=== PATIENT | female | born 1995 | race Caucasian/White ===

== ENCOUNTER → 2017-06-02 | Outpatient (CLI) | payer SELFPAY ==
--- NOTE | 2017-06-02 16:21 | RADIOLOGY REPORT (SQ) ---
EXAM DESCRIPTION: U/S [id number] TRNABD 1GES W/ODOP COMPLETED DATE/TIME: 06/02/2017 3:49 pm REASON FOR STUDY: ENCOUNTER FOR SUPERVISION OF OTHER NORMAL FIRST TRIMESTER Z34.[address] FOR SUPRVSN OF NORMAL , FIRST TRIM COMPARISON: None. TECHNIQUE: Transabdominal static and realtime grayscale images acquired of the pelvis. Additional se lected spectral and color Doppler images recorded. All images stored on PACs. bHCG: Not available. LIMITATIONS: None. FINDINGS: FETUS: Living intrauterine . EGA: By crown-rump length, 8 weeks 6 days KRISTEL: 01/06/2018 FHR: 173 beats per minute. SUBCHORIONIC BLEED: Yes SIZE OF BLEED: Moderate size subchorionic hemorrhage is present, 2.4 x 0.8 cm in size. This involves less than 50% of the circumference of the gestational sac. UTERUS: No masses. No anomalies. Uterus is 10 x 6 x 6.5 cm in size. CERVICAL LENGTH: 2.7 cm in length Closed. RIGHT ADNEXA: Normal ovary with normal vascular flow. 2.3 x 2.1 x 2 cm in size No adnexal free fluid. No adnexal masses. LEFT ADNEXA: Normal ovary with normal vascular flow. 3.8 x 2.2 x 2.2 cm in size No adnexal free fluid. No adnexal masses. FREE FLUID: None. OTHER: No other significant finding. IMPRESSION: LIVING INTRAUTERINE . EGA 8 weeks 6 days Moderate size subchorionic hemorrhage. Trimester of : First - 0 to 13 weeks. TECHNICAL DOCUMENTATION: JOB ID: [id number]- All Rights Reserved
== END ==
LOC: RAD 15:11
PROVIDERS: ATTEND Nurse Practitioner Women's Health
DX: Z34.81 Encounter for supervision of other normal pregnancy, first trimester (principal)
CPT/HCPCS: 76801

== ENCOUNTER → 2017-06-11 | Outpatient (CLI) | payer MEDICAID ==
--- NOTE | 2017-06-11 17:11 | RADIOLOGY REPORT (SQ) ---
EXAM DESCRIPTION: U/S [id number] TRNABD 1GES W/ODOP COMPLETED DATE/TIME: 06/11/2017 4:49 pm REASON FOR STUDY: ENCOUNTER FOR SUPERVISION OF OTHER NORMAL Z34.81 ENCOUNTER FOR SUPRVSN OF NORMAL , FIRST TRIM COMPARISON: OB ultrasound 06/02/2017 TECHNIQUE: Transabdominal static and realtime grayscale images acquired of the pelvis. Additional se lected spectral and color Doppler images recorded. All images stored on PACs. bHCG: None available LIMITATIONS: None. FINDINGS: FETUS: Living intrauterine . EGA: 9 weeks 4 days KRISTEL: 01/10/2018 FHR: 178 beats per minute. SUBCHORIONIC BLEED: Yes SIZE OF BLEED: Moderate sized. There has been evolution of the subchorionic hemorrhage is seen on . On the current exam, a hypoechoic 2.2 by 0.9 cm hemorrhage is seen along the fundus, smalle r than on the previous study. There is a second, smaller thin rim of hemorrhage, 2.8 by 0.4 cm in si ze. This is smaller than on the previous study. UTERUS: No masses. No anomalies. CERVICAL LENGTH: 3.9 cm Closed. RIGHT ADNEXA: Normal ovary with normal vascular flow. 3.6 x 2.7 x 2.6 cm in size No adnexal free fluid. No adnexal masses. LEFT ADNEXA: Normal ovary with normal vascular flow. 3.7 x 3.4 x 1.4 cm in size No adnexal free fluid. No adnexal masses. FREE FLUID: None. OTHER: No other significant finding. IMPRESSION: LIVING INTRAUTERINE . EGA 9 weeks 4 days Residua of subchorionic hemorrhages are smaller than on previous study 06/02/2017 Trimester of : First - 0 to 13 weeks. TECHNICAL DOCUMENTATION: JOB ID: [id number] [email or web address]- All Rights Reserved
== END ==
LOC: RAD 14:53
PROVIDERS: ATTEND Nurse Practitioner Women's Health
DX: Z34.81 Encounter for supervision of other normal pregnancy, first trimester (principal)
CPT/HCPCS: 76801

== ENCOUNTER 2017-07-23 15:23 | Emergency (ER) | payer MEDICAID ==
[2017-07-23 17:30] LABS: AMORPHOUS SEDIMENT,URINE TRACE /HPF; APPEARANCE,URINE CLOUDY; BILIRUBIN,URINE NEGATIVE (NEGATIVE); GLUCOSE, URINE NEGATIVE (NEGATIVE); KETONES,URINE NEGATIVE (NEGATIVE); LEUKOCYTE ESTERASE,URINE NEGATIVE (NEGATIVE); NITRITE,URINE NEGATIVE (NEGATIVE); PROTEIN,URINE NEGATIVE (NEGATIVE); URINE SPECIFIC GRAVITY 1.013
--- NOTE | 2017-07-23 17:40 | ER Document Report ---
ED General - General Chief Complaint: Abdominal Cramping Stated Complaint: ABDOMINAL PAIN Time Seen by Provider: 07/23/17 15:49 Mode of Arrival: Ambulatory Information source: Patient Notes: Patient states that she is currently approximately 16 weeks . She states she lifted a couple bottles of water yesterday and now she is having some lower abdominal cramping. She states she has had occasional spotting throughout this . She has no fevers. No trouble with stools or vomiting. No dysuria urgency or frequency. The pain is a crampy sensation. It is in the bilateral lower quadrants. No radiation of the pain. It is constant. But does wax and wane in intensity. Nothing makes it better or worse. TRAVEL OUTSIDE OF THE [place] IN LAST 30 DAYS: No - Related Data Allergies/Adverse Reactions: No Known Allergies Allergy (Verified 07/23/17 15:27) Past Medical History - Social History Smoking Status: Current Every Day Smoker Chew tobacco use (# tins/day): No Frequency of alcohol use: None Drug Abuse: None Family History: Reviewed & Not Pertinent Patient has suicidal ideation: No Patient has homicidal ideation: No Renal/ Medical History: Denies: Hx Peritoneal Dialysis Past Surgical History: Reports: Hx Section Review of Systems - Review of Systems Constitutional: denies: Chills, Fever Cardiovascular: denies: Chest pain, Palpitations Respiratory: denies: Cough, Short of breath -: Yes All other systems reviewed and negative Physical Exam - Vital signs Vitals: Temp Pulse Resp BP Pulse Ox 98.6 F 99 14 124/74 100 07/23/17 15:27 07/23/17 15:27 07/23/17 15:27 07/23/17 15:27 07/23/17 15:27 Interpretation: Normal - General General appearance: Appears well, Alert - HEENT Head: Normocephalic, Atraumatic Eyes: Normal Pupils: PERRL - Respiratory Respiratory status: No respiratory distress Chest status: Nontender Breath sounds: Normal Chest palpation: Normal - Cardiovascular Rhythm: Regular Heart sounds: Normal auscultation Murmur: No - Abdominal Inspection: Normal Distension: No distension Bowel sounds: Normal Tenderness: Nontender Organomegaly: No organomegaly - Back Back: Normal, Nontender - Extremities General upper extremity: Normal inspection, Nontender, Normal color, Normal ROM , Normal temperature General lower extremity: Normal inspection, Nontender, Normal color, Normal ROM , Normal temperature, Normal weight bearing. No: Max's sign - Neurological Neuro grossly intact: Yes Cognition: Normal Orientation: AAOx4 Rick Coma Scale Eye Opening: Spontaneous [place] Coma Scale Verbal: Oriented Rick Coma Scale Motor: Obeys Commands [place] Coma Scale Total: 15 Speech: Normal Motor strength normal: LUE, RUE, LLE, RLE Sensory: Normal - Psychological Associated symptoms: Normal affect, Normal mood - Skin Skin Temperature: Warm Skin Moisture: Dry Skin Color: Normal Course - Re-evaluation Re-evalutation: 07/23/17 17:37 I performed a bedside transabdominal ultrasound. This showed good movement. It also showed good heart rate of approximately 140. 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 Your blood pressure is very mildly elevated. Please have this rechecked in 1 week by your physician. Prescriptions: Nitrofurantoin/Nitrofuran Mac [Macrobid 100 mg Capsule] 1 tab PO BID 5 Days #10 capsule Forms: Elevated Blood Pressure, Return to Work
[2017-07-23 17:44] VITALS: BP 110/54
== END 2017-07-23 17:43 | disposition home or self-care (01) ==
LOC: ER 15:23
DX: O26.899 Other specified pregnancy related conditions, unspecified trimester (principal); R10.31 Right lower quadrant pain; R10.32 Left lower quadrant pain; O26.859 Spotting complicating pregnancy, unspecified trimester; O99.330 Smoking (tobacco) complicating pregnancy, unspecified trimester; Z3A.00 Weeks of gestation of pregnancy not specified
CPT/HCPCS: 81001; 99283

== ENCOUNTER 2017-08-08 09:22 | Emergency (ER) | payer MEDICAID ==
--- NOTE | 2017-08-08 09:50 | ER Document Report ---
ED Medical Screen (RME) - General Mode of Arrival: Ambulatory Information source: Patient TRAVEL OUTSIDE OF THE [place] IN LAST 30 DAYS: No - HPI Patient complains to provider of: Vaginal spotting Onset: Other - last night Associated Symptoms: Other - see notes above - General Chief Complaint: Vaginal Bleeding Stated Complaint: VAGINAL BLEEDING Time Seen by Provider: 08/08/17 09:45 Notes: 22 year old female (18 weeks; A0) presents to the ED complaining of vaginal spotting that started last night while at work and lasting continuously for 2 hours. Patient reports that she has had 2 ultrasounds (8 weeks and 10 weeks) the first showing a subchorionic bleed, but the latter showing that it is not present. Patient denies any bleeding this morning or any recent intercourse. Patient has mild period cramps, but denies any burning with urination. [facility] (SONJA GAITAN) - Related Data Allergies/Adverse Reactions: No Known Allergies Allergy (Verified 08/08/17 09:24) Home Medications: Current Home Medications Diphenhydramine HCl [Benadryl 50 mg Capsule] 1 tab PO DAILY 08/08/17 [History] Pnv No.95/Ferrous Fum/Folic AC [ Multivitamin Tablet] 1 tab PO DAILY 09/24 [History] Past Medical History - General Information source: Patient Last Menstrual Period: unknown - Social History Frequency of alcohol use: None Drug Abuse: None Renal/ Medical History: Denies: Hx Peritoneal Dialysis Past Surgical History: Reports: Hx Appendectomy, Hx Section Review of Systems - Review of Systems Constitutional: No symptoms reported EENT: No symptoms reported Cardiovascular: No symptoms reported Respiratory: No symptoms reported Gastrointestinal: No symptoms reported Genitourinary: No symptoms reported. denies: Burning Female Genitourinary: See HPI, - 18 weeks, Vaginal bleeding - spotting , Other - vaginal cramping Musculoskeletal: No symptoms reported Skin: No symptoms reported Hematologic/Lymphatic: No symptoms reported Neurological/Psychological: No symptoms reported -: Yes All other systems reviewed and negative Physical Exam - General General appearance: Alert In distress: None - Respiratory Respiratory status: No respiratory distress - Cardiovascular Rhythm: Regular - Psychological Associated symptoms: Normal affect, Normal mood - Vital signs Vitals: Temp Pulse Resp BP Pulse Ox 98.2 F 75 16 123/71 97 08/08/17 09:28 08/08/17 09:28 08/08/17 09:28 08/08/17 09:28 08/08/17 09:28 Course - Re-evaluation Re-evalutation: 08/08/17 21:01 I personally performed the services described in the documentation, reviewed and edited the documentation which was dictated to the scribe in my presence, and it accurately records my words and actions. (NISHANT DAVIDSON) - Vital Signs Vital signs: Temp Pulse Resp BP Pulse Ox 98.0 F 83 16 94/50 L 100 08/08/17 12:41 08/08/17 12:41 08/08/17 12:41 08/08/17 12:41 08/08/17 12:41 Doctor's Discharge - Discharge Clinical Impression: with 18 completed weeks gestation, Vaginal spotting Condition: Stable Disposition: HOME, SELF-CARE Additional Instructions: Your ultrasound shows an 18 week 5 day living with no abnormalities seen. You should drink plenty of fluids and rest over the weekend. [facility] for [facility]he[facility]. RETURN TO THE EMERGENCY ROOM IF ANY NEW OR WORSENING SYMPTOMS. Referrals: HEBERT LUTHER MD [Primary Care Provider] - Follow up as needed Scribe Documentation - Scribe Written by Tan:: Tan Tolentino, 08/08/2017 1023 acting as scribe for :: Rodrigue
[2017-08-08 10:21] LABS: APPEARANCE,URINE CLOUDY; BILIRUBIN,URINE NEGATIVE (NEGATIVE); GLUCOSE, URINE NEGATIVE (NEGATIVE); KETONES,URINE NEGATIVE (NEGATIVE); LEUKOCYTE ESTERASE,URINE NEGATIVE (NEGATIVE); NITRITE,URINE NEGATIVE (NEGATIVE); PROTEIN,URINE NEGATIVE (NEGATIVE); URINE SPECIFIC GRAVITY 1.012; UROBILINOGEN,URINE NEGATIVE mg/dL (<2.0)
[2017-08-08 10:25] LABS: RBC,URINE 0-1 /HPF
[2017-08-08 10:26] LABS: BACTERIA,URINE 1+ /HPF
--- NOTE | 2017-08-08 10:40 | ER Document Report ---
ED GI/ <DARIEN AVILA - Last Filed: 08/08/17 12:09> - General Mode of Arrival: Ambulatory Information source: Patient TRAVEL OUTSIDE OF THE [place] IN LAST 30 DAYS: No <ASIM SEGOVIA - Last Filed: 08/08/17 13:57> - General Chief Complaint: Vaginal Bleeding Stated Complaint: VAGINAL BLEEDING Time Seen by Provider: 08/08/17 09:45 Notes: Patient is a 22-year-old female who presents to the emergency department today with complaints of vaginal spotting. Patient is . Patient states that she has an appointment on 08/11 at [facility]. Patient denies any abdominal pain. (ASIM SEGOVIA) - Related Data Allergies/Adverse Reactions: No Known Allergies Allergy (Verified 08/08/17 09:24) Home Medications: Current Home Medications Diphenhydramine HCl [Benadryl 50 mg Capsule] 1 tab PO DAILY 08/08/17 [History] Pnv No.95/Ferrous Fum/Folic AC [ Multivitamin Tablet] 1 tab PO DAILY 09/24 [History] Past Medical History - General Information source: Patient Last Menstrual Period: unknown - Social History Smoking Status: Current Every Day Smoker Cigarette use (# per day): Yes Frequency of alcohol use: None Drug Abuse: None Lives with: Family Family History: Reviewed & Not Pertinent Patient has suicidal ideation: No Patient has homicidal ideation: No - Medical History Medical History: Negative Past Surgical History: Reports: Hx Appendectomy, Hx Section <ASIM SEGOVIA - Last Filed: 08/08/17 13:57> Review of Systems - Review of Systems Constitutional: No symptoms reported EENT: No symptoms reported Cardiovascular: No symptoms reported Respiratory: No symptoms reported Gastrointestinal: No symptoms reported Genitourinary: No symptoms reported Female Genitourinary: See HPI, , Vaginal bleeding Musculoskeletal: No symptoms reported Skin: No symptoms reported Hematologic/Lymphatic: No symptoms reported Neurological/Psychological: No symptoms reported -: Yes All other systems reviewed and negative <ASIM SEGOVIA - Last Filed: 08/08/17 13:57> Physical Exam <DARIEN AVILA - Last Filed: 08/08/17 12:09> <ASIM SEGOVIA - Last Filed: 08/08/17 13:57> - Vital signs Vitals: Temp Pulse Resp BP Pulse Ox 98.2 F 75 16 123/71 97 08/08/17 09:28 08/08/17 09:28 08/08/17 09:28 08/08/17 09:28 08/08/17 09:28 - Notes Notes: Physical Exam: General: Alert, appears well. HEENT: Normocephalic. Atraumatic. PERRL. Extraocular movements intact. Oropharynx clear. Neck: Supple. Non-tender. Respiratory: No respiratory distress. Clear and equal breath sounds bilaterally. Cardiovascular: Regular rate and rhythm. Abdominal: Normal Inspection. Non-tender. No distension. Normal Bowel Sounds. Female genitourinary: Gravid uterus. Back: Non-tender. No deformity or step off. Extremities: Moves all four extremities. Upper extremities: Normal inspection. Normal ROM. Lower extremities: Normal inspection. No edema. Normal ROM. Neurological: Normal cognition. AAOx4. Normal speech. Psychological: Normal affect. Normal Mood. Skin: Warm. Dry. Normal color. (ASMI SEGOVIA) Course - Diagnostic Test Radiology reviewed: Image reviewed, Reports reviewed - Ultrasound shows a living 18 week 5 day IUP with no abnormalities noted <DARIEN AVILA - Last Filed: 08/08/17 12:09> - Vital Signs Vital signs: Temp Pulse Resp BP Pulse Ox 98.0 F 83 16 94/50 L 100 08/08/17 12:41 08/08/17 12:41 08/08/17 12:41 08/08/17 12:41 08/08/17 12:41 Discharge <DARIEN AVILA - Last Filed: 08/08/17 12:09> <ASIM SEGOVIA - Last Filed: 08/08/17 13:57> - Discharge Clinical Impression: with 18 completed weeks gestation, Vaginal spotting Condition: Stable Disposition: HOME, SELF-CARE Additional Instructions: Your ultrasound shows an 18 week 5 day living with no abnormalities seen. You should drink plenty of fluids and rest over the weekend. [facility] for recheck. RETURN TO THE EMERGENCY ROOM IF ANY NEW OR WORSENING SYMPTOMS. Referrals: HEBERT LUTHER MD [Primary Care Provider] - Follow up as needed Scribe Attestation: 08/08/17 12:12 I personally performed the services described in the documentation, reviewed and edited the documentation which was dictated to the scribe in my presence, and it accurately records my words and actions. (DARIEN AVILA) Scribe Documentation - Scribe Written by Tan:: Tan Young, 08/08/2017 1241 acting as scribe for :: Lainey <ASIM SEGOVIA - Last Filed: 08/08/17 13:57>
--- NOTE | 2017-08-08 12:05 | RADIOLOGY REPORT (SQ) ---
EXAM DESCRIPTION: U/S OB 14+ TRNABD 1GES W/O DOP COMPLETED DATE/TIME: 08/08/2017 11:50 am REASON FOR STUDY: spotting, 18weeks COMPARISON: 06/11/2017. TECHNIQUE: Static and Dynamic grayscale imaging performed of gravid uterus using transabdominal appr oach. Additional selected color Doppler and spectral images recorded. All stored on PACS. LIMITATIONS: None. FINDINGS: EGA: 18 week 5 day. KRISTEL: 01/04/2018. EFW: 244 grams PERCENTILE: Not applicable. Fetus less than or equal to 20 weeks gestation. MONTS[place]AT: Largest pocket 5.6 cm. PLACENTA: Anterior. GRADE: I PRESENTATION: Cephalic. ANATOMY: HEART RATE: 150 beats per minute. FOUR CHAMBER HEART: Visualized. THREE VESSEL CORD: Yes. CORD INSERTION: Visualized. KIDNEYS AND BLADDER: Visualized. Appear normal. STOMACH: Visualized. Appears normal. SPINE: Normal as visualized. BRAIN AND LATERAL VENTRICLES: Visualized. Appear normal. OTHER: No other significant finding. MATERNAL ADNEXA: Maternal ovaries not visualized. CERVICAL LENGTH: 2.9 cm. Closed. OTHER: No other significant finding. IMPRESSION: LIVING INTRAUTERINE . ESTIMATED GESTATIONAL AGE 18 WEEK 5 DAY. NO VISUALIZED ANOMALIES. Trimester of : Second trimester - 13 weeks 1 day to 27 weeks 6 days. TECHNICAL DOCUMENTATION: JOB ID: [id number]- All Rights Reserved
[2017-08-08 12:49] VITALS: BP 94/50
== END 2017-08-08 12:49 | disposition home or self-care (01) ==
LOC: ER 09:22
DX: O26.852 Spotting complicating pregnancy, second trimester (principal); O99.332 Smoking (tobacco) complicating pregnancy, second trimester; F17.210 Nicotine dependence, cigarettes, uncomplicated; Z3A.18 18 weeks gestation of pregnancy
CPT/HCPCS: 76805; 81001; 99284

== ENCOUNTER 2017-10-23 22:46 | Outpatient (CLI) | payer MEDICAID ==
[2017-10-23 23:22] LABS: APPEARANCE,URINE CLEAR; BILIRUBIN,URINE NEGATIVE (NEGATIVE); COLOR,URINE YELLOW; GLUCOSE, URINE NEGATIVE (NEGATIVE); KETONES,URINE NEGATIVE (NEGATIVE); LEUKOCYTE ESTERASE,URINE NEGATIVE (NEGATIVE); NITRITE,URINE NEGATIVE (NEGATIVE); PROTEIN,URINE NEGATIVE (NEGATIVE); URINE SPECIFIC GRAVITY 1.013; UROBILINOGEN,URINE NEGATIVE mg/dL (<2.0)
[2017-10-23 23:40] LABS: URINE AMPHETAMINES SCREEN NEGATIVE; URINE BARBITURATES SCREEN NEGATIVE; URINE BENZODIAZEPINES SCREEN NEGATIVE; URINE COCAINE SCREEN NEGATIVE; URINE MARIJUANA (THC) SCREEN NEGATIVE; URINE METHADONE SCREEN NEGATIVE; URINE PHENCYCLIDINE SCREEN NEGATIVE
[2017-10-24 00:03] LABS: AMNISURE (ROM) NEGATIVE (NEGATIVE)
== END 2017-10-24 00:32 | disposition home or self-care (01) ==
LOC: LC 22:46
PROVIDERS: ATTEND Obstetrics & Gynecology
PROC: 4A1HXCZ Monitoring of Products of Conception, Cardiac Rate, External Approach (ICD-10-PCS; principal; 2017-10-23)
DX: O47.02 False labor before 37 completed weeks of gestation, second trimester (principal); Z3A.28 28 weeks gestation of pregnancy
CPT/HCPCS: 80307; 81001; 84112

== ENCOUNTER 2017-11-05 21:44 | Outpatient (CLI) | payer MEDICAID ==
[2017-11-05] MEDS ORDERED: RINGERS SOLUTION,LACTATED 1,000 ML IV PRN (22:11)
[2017-11-05 22:24] LABS: APPEARANCE,URINE CLOUDY; BILIRUBIN,URINE NEGATIVE (NEGATIVE); COLOR,URINE YELLOW; GLUCOSE, URINE NEGATIVE (NEGATIVE); KETONES,URINE NEGATIVE (NEGATIVE); LEUKOCYTE ESTERASE,URINE MODERATE (NEGATIVE); NITRITE,URINE NEGATIVE (NEGATIVE); PROTEIN,URINE 30 mg/dL (NEGATIVE); URINE SPECIFIC GRAVITY 1.018
[2017-11-05 22:30] LABS: URINE AMPHETAMINES SCREEN NEGATIVE; URINE BENZODIAZEPINES SCREEN NEGATIVE; URINE COCAINE SCREEN NEGATIVE; URINE MARIJUANA (THC) SCREEN NEGATIVE; URINE METHADONE SCREEN NEGATIVE; URINE PHENCYCLIDINE SCREEN NEGATIVE
[2017-11-05 22:34] LABS: URINE BARBITURATES SCREEN UNCONFIRMED POSITIVE
== END 2017-11-06 00:18 | disposition home or self-care (01) ==
LOC: LC 21:44
PROVIDERS: ATTEND Obstetrics & Gynecology Gynecology
PROC: 4A1HXCZ Monitoring of Products of Conception, Cardiac Rate, External Approach (ICD-10-PCS; principal; 2017-11-05)
DX: O47.03 False labor before 37 completed weeks of gestation, third trimester (principal); Z3A.31 31 weeks gestation of pregnancy
CPT/HCPCS: 59899; 81001; 80307; 80345; G0480

== ENCOUNTER 2017-11-11 23:30 | Outpatient (CLI) | payer MEDICAID ==
[2017-11-12 00:11] LABS: APPEARANCE,URINE CLEAR; BILIRUBIN,URINE NEGATIVE (NEGATIVE); COLOR,URINE YELLOW; GLUCOSE, URINE NEGATIVE (NEGATIVE); KETONES,URINE NEGATIVE (NEGATIVE); LEUKOCYTE ESTERASE,URINE NEGATIVE (NEGATIVE); NITRITE,URINE NEGATIVE (NEGATIVE); PROTEIN,URINE NEGATIVE (NEGATIVE); URINE SPECIFIC GRAVITY 1.005; UROBILINOGEN,URINE NEGATIVE mg/dL (<2.0)
[2017-11-12] MEDS ORDERED: HYDROXYZINE PAMOATE 50 MG CAPSULE PO ONE (00:22)
[2017-11-12] MEDS ORDERED: HYDROXYZINE PAMOATE 50 MG CAPSULE ONE (00:26)
[2017-11-12 00:28] LABS: URINE AMPHETAMINES SCREEN NEGATIVE; URINE BARBITURATES SCREEN NEGATIVE; URINE BENZODIAZEPINES SCREEN NEGATIVE; URINE COCAINE SCREEN NEGATIVE; URINE MARIJUANA (THC) SCREEN NEGATIVE; URINE METHADONE SCREEN NEGATIVE; URINE PHENCYCLIDINE SCREEN NEGATIVE
== END 2017-11-12 00:45 | disposition home or self-care (01) ==
LOC: LC 23:30
PROVIDERS: ATTEND Obstetrics & Gynecology
PROC: 4A1HXCZ Monitoring of Products of Conception, Cardiac Rate, External Approach (ICD-10-PCS; principal; 2017-11-11)
DX: O26.893 Other specified pregnancy related conditions, third trimester (principal); Z3A.32 32 weeks gestation of pregnancy
CPT/HCPCS: 59025; 81001; 80307; J3490

== ENCOUNTER 2017-12-06 22:18 | Outpatient (CLI) | payer MEDICAID ==
--- NOTE | 2017-12-06 22:29 | Non Stress Test Report ---
Non Stress Test Datetime Report Generated by CPN: 12/06/2017 22:28 DEMOGRAPHIC EGA NST: 32.1 INDICATION Indication for Study: Ordered by Provider Indication for Study (NST) Other: LC URINE RESULTS Urine Protein, NST: Negative Urine Ketones - NST: Negative Urine Glucose - NST: Negative Urine Blood - NST: Negative MONITORING Monitor Explained: Monitor Explained; Test Explained; Patient Verbalized Understanding Time on Monitor: 11/11/2017 23:47 Time off Monitor: 11/12/2017 00:26 NST Duration: 39 NST INTERVENTIONS NST Interventions: PO Hydration; Reposition Patient Physician Notified NST: Adan BABY A: [id number] BABY A Movement : Present Contraction Frequency : 6-12 FHR Baseline : 135 Accelerations : 15X15 Decelerations : None Variability : Moderate 6-25bpm NST Review: Meets Criteria for Reactive NST NST Review and Verified By : Dilshad Mcclure RN NST Results: Reactive NST REPORT Report Trigger: Send Report
[2017-12-06 23:07] LABS: APPEARANCE,URINE CLEAR; BILIRUBIN,URINE NEGATIVE (NEGATIVE); COLOR,URINE COLORLESS; GLUCOSE, URINE NEGATIVE (NEGATIVE); KETONES,URINE NEGATIVE (NEGATIVE); LEUKOCYTE ESTERASE,URINE NEGATIVE (NEGATIVE); NITRITE,URINE NEGATIVE (NEGATIVE); PROTEIN,URINE NEGATIVE (NEGATIVE); URINE SPECIFIC GRAVITY 1.007; UROBILINOGEN,URINE NEGATIVE mg/dL (<2.0)
[2017-12-06 23:09] LABS: URINE AMPHETAMINES SCREEN NEGATIVE; URINE BARBITURATES SCREEN NEGATIVE; URINE BENZODIAZEPINES SCREEN NEGATIVE; URINE COCAINE SCREEN NEGATIVE; URINE MARIJUANA (THC) SCREEN NEGATIVE; URINE METHADONE SCREEN NEGATIVE; URINE PHENCYCLIDINE SCREEN NEGATIVE
== END 2017-12-06 23:26 | disposition home or self-care (01) ==
LOC: LC 22:18
PROVIDERS: ATTEND Obstetrics & Gynecology
PROC: 4A1HXCZ Monitoring of Products of Conception, Cardiac Rate, External Approach (ICD-10-PCS; principal; 2017-12-06)
DX: O47.03 False labor before 37 completed weeks of gestation, third trimester (principal); Z3A.35 35 weeks gestation of pregnancy; Z79.899 Other long term (current) drug therapy
CPT/HCPCS: 59025; 80307; 81001

== ENCOUNTER 2017-12-23 05:34 | Inpatient (IN) | payer MEDICAID ==
--- NOTE | 2017-12-23 06:04 | Admission Physical ---
Datetime Report Generated by CPN: 12/23/2017 06:03 CURRENT ADMISSION Chief Complaint: Suspected Ruptured Membranes Indication for Induction: PROM Admit Impression : Term, Intrauterine ; Ruptured Membranes Admit Plan: Admit to Unit; Initiate Labor Augmentation Protocol ALLERGIES Medication Allergies: No Medication Allergies: No Known Allergies (12/06/2017) Latex: No Latex Allergies Food Allergies: N/A Environmental Allergies: N/A OBSTETRICAL HISTORY EDC: 01/06/2018 00:00 : 3 Para: 2 Term: 1 : 1 SAB: 0 IAB: 0 Ectopic: 0 Livin Cesareans: 0 VBACs: 0 Multiple Births: 0 Gestational Diabetes: No Rh Sensitization: No Incompetent Cervix: No SIMONE: No Infertility: No ART Treatment: No Uterine Anomaly: No IUGR: No Hx Previous C/S: No Macrosomia: No Hx Loss/Stillborn: No PIH: No Hx : No Placenta Previa/Abruption: No Depression/PP Depression: Yes PTL/PROM: Yes Post Hemorrhage: No Current Procedures: Ultrasound Obstetrical History Comments: G1 - 2011 induced @40weeks - 2013 delivered 36 weeks G3 - current SEE RECORDS Alcohol: No Marijuana : No Cocaine: No Other Illicit Drugs: No Cigarettes: Current Everyday Smoker. [id number] MEDICAL HISTORY Diabetes: No Blood Transfusion: No Pulmonary Disease (Asthma, TB): No Breast Disease: No Hypertension: No Gaming Manager Surgery: No Heart Disease: No Hosp/Surgery: No Autoimmune Disorder: No Anesthetic Complications: No Kidney Disease: No Abnormal Pap Smear: Yes Neuro/Epilepsy: No Psychiatric Disorders: No Other Medical Diseases: No Hepatitis/Liver Disease: No Significant Family History: No Varicosities/Phlebitis: No Trauma/Violence : No Thyroid Dysfunction: No Medical History Comments: appendectomy 2010, abnormal cervical cells INFECTIOUS HISTORY Gonorrhea: No Genital Herpes: No Chlamydia: No Tuberculosis: No Syphilis: No Hepatitis: No HIV/AIDS Exposure: No Rash or Viral Illness: No HPV: No PHYSICAL EXAM General: Normal HEENT: Normal Neurologic: Normal Thyroid: Normal Heart: Normal Lungs: Normal Breast: Normal Back: Normal Abdomen: Normal Genitourinary Exam: Normal Extremities: Normal DTRs: Normal Pelvic Type: Adequate Vital Signs: Reviewed VAGINAL EXAM Dilatation: 3 Effacement: 80 Station: -1 MEMBRANES Pooling: Positive Membranes: Ruptured Amniotic Fluid Color: Clear FETUS A EGA: 38.0 Monitoring: External US FHR- Baseline: 150 Variability: Moderate 6-25bpm Accelerations: 15X15 Decelerations: None FHR Category: Category I Estimated Weight (gm): 3800 Presentation: Vertex PLANS FOR LABOR AND DELIVERY Labor and Delivery: None Pain Management: Epidural Benefit of Breast Feed Discussed: Yes INFORMED CONSENT Signature: with User ID: [email or web address]
[2017-12-23] MEDS ORDERED: ONDANSETRON HCL INJ/PF 4 MG/2 ML SDV IV ONE (06:12)
[2017-12-23] MEDS ORDERED: ONDANSETRON HCL INJ/PF 4 MG/2 ML SDV ONE (06:15)
[2017-12-23 06:32] LABS: APPEARANCE,URINE SLIGHTLY-CLOUDY; BILIRUBIN,URINE NEGATIVE (NEGATIVE); COLOR,URINE YELLOW; GLUCOSE, URINE NEGATIVE (NEGATIVE); KETONES,URINE NEGATIVE (NEGATIVE); LEUKOCYTE ESTERASE,URINE NEGATIVE (NEGATIVE); NITRITE,URINE NEGATIVE (NEGATIVE); PROTEIN,URINE NEGATIVE (NEGATIVE); UROBILINOGEN,URINE NEGATIVE mg/dL (<2.0)
[2017-12-23 06:49] LABS: URINE AMPHETAMINES SCREEN NEGATIVE; URINE BARBITURATES SCREEN NEGATIVE; URINE BENZODIAZEPINES SCREEN NEGATIVE; URINE COCAINE SCREEN NEGATIVE; URINE MARIJUANA (THC) SCREEN NEGATIVE; URINE METHADONE SCREEN NEGATIVE; URINE PHENCYCLIDINE SCREEN NEGATIVE
[2017-12-23 06:50] LABS: ABSOLUTE EOSINOPHILS # (AUTO) 0.2 10^3/uL (0.0-0.6); ABSOLUTE MONOCYTES (AUTO) 1.2 10^3/uL (0.1-1.4); ABSOLUTE NEUT (AUTO) 12.2 10^3/uL (1.7-8.2); BASOPHILS % (AUTO) 0.2 % (0-2); EOSINOPHILS % (AUTO) 0.9 % (0-6); HEMATOCRIT 28.5 % (36.0-47.0); HEMOGLOBIN 9.4 g/dL (12.0-15.5); LYMPHOCYTES % (AUTO) 17.9 % (13-45); MEAN CORPUSCULAR HEMOGLOBIN 29.8 pg (27.0-33.4); MEAN CORPUSCULAR VOLUME 90 fl (80-97); MONOCYTES % (AUTO) 7.4 % (3-13); PLATELET COUNT 204 10^3/uL (150-450); RED BLOOD COUNT 3.16 10^6/uL (3.72-5.28); RED CELL DISTRIBUTION WIDTH 13.7 % (11.5-14.0); SEGMENTED NEUTROPHILS % (AUTO) 73.6 % (42-78); TOTAL CELLS COUNTED % (AUTO) 100 %; WHITE BLOOD COUNT 16.6 10^3/uL (4.0-10.5)
[2017-12-23] MEDS ORDERED: FENTANYL CITRATE INJ/PF 100 MCG/2 ML AMPUL ONE (07:25)
[2017-12-23] MEDS ORDERED: BUPIVACAINE HCL 0.25 % INJ/PF (2.5 MG/1 ML) 30 ML VIAL ONE (07:26)
[2017-12-23] MEDS ORDERED: PHENYLEPHRINE HCL INJ/PF 10 MG/1 ML SDV ONE (07:26)
[2017-12-23] MEDS ORDERED: FENTANYL/BUPIVACAINE/NS/PF 200 MCG/100 ML RTUINJ EPI ONE (07:26)
[2017-12-23] MEDS ORDERED: EPHEDRINE SULFATE INJ 50 MG/1 ML AMPULE ONE (07:26)
[2017-12-23] MEDS ORDERED: MISOPROSTOL 0.2 MG TABLET ONE (07:27)
[2017-12-23] MEDS ORDERED: OXYTOCIN/NORMAL SALINE 20 UNIT/1,000 ML RTUINJ ONE (07:28)
[2017-12-23] MEDS ORDERED: LIDOCAINE 1% INJ-PF (10 MG/ML) 30 ML SDV ONE (07:28)
[2017-12-23] MEDS ORDERED: DIBUCAINE 1% OINTMENT 28 GM TP PRN (10:53)
[2017-12-23] MEDS ORDERED: DIPH/PERTUSS(ACELL)/TETANUS VAC/PF 0.5 ML SYR (>=10YO) IM PRN (10:53)
[2017-12-23] MEDS ORDERED: BENZOCAINE/MENTHOL AEROSOL SPRAY 56 ML TOP PRN (10:53)
[2017-12-23] MEDS ORDERED: ACETAMINOPHEN WITH CODEINE #3 TABLET PO PRN (10:53)
[2017-12-23] MEDS ORDERED: OXYTOCIN/NORMAL SALINE 20 UNIT/1,000 ML RTUINJ IV PRN (10:53)
[2017-12-23] MEDS ORDERED: MEASLES,MUMPS&RUBELLA VACC/PF 0.5 ML VIAL SUBCUT PRN (10:53)
[2017-12-23] MEDS ORDERED: ZOLPIDEM TARTRATE 5 MG TABLET PO PRN (10:53)
--- NOTE | 2017-12-23 12:52 | Delivery Summary ---
Del Sum A-C Datetime Report Generated by CPN: 12/23/2017 12:52 DELIVERY PERSONNEL DELIVERY PERSONNEL: [id number] Delivery Doctor:: Ml Ayoub CNM Labor and Delivery Nurse:: Quang Byrnes RNbuying intern Nurse:: DAVEY Veloz Nursery Nurse:: Genia Jiménez RN Printing Roller Handler/RESULTS ENGINEER: Carolina Shen CNA II MATERNAL INFORMATION Delivery Anesthesia: Epidural Medications After Delivery: Pitocin Bolus-Please Comment Estimated Blood Loss (ml): 200 Maternal Complications: None Provider Comments: of viable male infant over intact perineum, head, shoulders, and body delivered without difficulty. with spontaneous cry and respirations, to maternal abdomen. Cord clamped X2 after 2 min delay, infant cut free by pts support person. Cord avulsed from placenta, placenta manually removed in pieces, minimal blood loss pt tolerated well. vagina and perineum inspected, no lacerations noted, hemostasis acheived with external fundal massage and IV pitocin, mother and in stable condition, routine pp care. LABOR SUMMARY EDC: 01/06/2018 00:00 No. Babies in Womb: 1 Attempted: No Labor Anesthesia: Epidural LABOR INFORMATION Reason for Induction: Not Applicable Onset of Labor: 12/23/2017 04:00 Complete Dilatation: 12/23/2017 10:08 Oxytocin: N/A Group B Beta Strep: negative Steroids Given: None Reason Steroids Not Administered: Not Applicable MEMBRANES Membranes Rupture Method: Spontaneous Rupture of Membranes: 12/23/2017 06:25 Length of Rupture (hr): 4.02 Amniotic Fluid Color: Clear Amniotic Fluid Amount: Small Amniotic Fluid Odor: Normal STAGES OF LABOR Stage 1 hr: 6 Stage 1 min: 8 Stage 2 hr: 0 Stage 2 min: 18 Stage 3 hr: 0 Stage 3 min: 7 Total Time in Labor hr: 6 Total Time in Labor min: 33 VAGINAL DELIVERY Episiotomy: None Laceration #1: None Laceration Extension #1: N/A Laceration Repair: Not Applicable Sponge Count Correct: N/A Sharps Count Correct: N/A CSECTION DELIVERY Primary Indication: N/A Secondary Indication: N/A CSection Incidence: N/A Labor: N/A Elective: N/A CSection Incision: N/A BABY A INFORMATION Infant Delivery Date/Time: 12/23/2017 10:26 Method of Delivery: Vaginal Born in Route : No : N/A Forceps: N/A Vacuum Extraction: N/A Shoulder Dystocia : No PRESENTATION/POSITION BABY A Presentation: Cephalic Cephalic Presentation: Vertex Vertex Position: Right Occipital Anterior Breech Presentation: N/A PLACENTA INFORMATION BABY A Placenta Delivery Time : 12/23/2017 10:33 Placenta Method of Delivery: Manual Removal Placenta Status: Delivered SCORES BABY A Heart Rate 1 min: >100 bpm Resp Effort 1 min: Good Cry Reflex Irritability 1 min: Cough or Sneeze or Pulls Away Muscle Tone 1 min: Active Motion Color 1 min: Blue/Pale Resuscitation Effort 1 min: Tactile Stimulation SCORE 1 MIN: 8 Heart Rate 5 min: >100 bpm Resp Effort 5 min: Good Cry Reflex Irritability 5 min: Cough or Sneeze or Pulls Away Muscle Tone 5 min: Active Motion Color 5 min: Body [place], Extremities Blue Resuscitation Effort 5 min: N/A SCORE 5 MIN: 9 Resuscitation Effort 10 min: N/A INFORMATION BABY A Gestational Age at Delivery: 38.0 Gestational Status: Early Term- 37- 38.6 Weeks Infant Outcome : Liveborn Infant Condition : Stable Infant Sex: Male IDENTIFICATION BABY A Verification Date/Time: 12/23/2017 10:36 ID Band Number: [id number] Mother's Name Verified: Yes Infant RN Verifying : J, RN and L.Roulund, RN WEIGHT/LENGTH BABY A Birthweight (gm): 3550 Infant Weight (lb): 7 Infant Weight (oz): 13 Length (in): 19.75 Infant Length (cm): 50.17 CORD INFORMATION BABY A No. Cord Vessels: 3 Nuchal Cord : N/A Cord Blood Taken: Yes-For Storage (Mom's Blood type +) Suction: None ASSESSMENT BABY A Infant Complications: None Physical Findings at Delivery: Within Normal Limits Respirations: Grunting Skin to Skin: Yes Skin to Skin Time (min): 10 Ship Steward/ALS Called : No Care By: Dilshad Jiménez RN Transferred To: Remains with Mother SIGNATURES Assignment: Uriah Greer MD Signature: with User ID: [email or web address] : with User ID: [email or web address]
[2017-12-23] MEDS: IBUPROFEN 800 MG TABLET PO SCH ×2 (13:21→21:21)
[2017-12-23] MEDS: FERROUS SULFATE 325 MG TABLET PO SCH (18:30)
[2017-12-23] MEDS: DOCUSATE SODIUM 100 MG CAPSULE PO SCH (18:30)
[2017-12-23] MEDS: ACETAMINOPHEN WITH CODEINE #3 TABLET PO PRN (23:19)
[2017-12-24] MEDS: IBUPROFEN 800 MG TABLET PO SCH ×3 (05:50→21:51)
[2017-12-24 07:35] LABS: HEMATOCRIT 23.9 % (36.0-47.0); MEAN CORPUSCULAR HEMOGLOBIN 29.5 pg (27.0-33.4); MEAN CORPUSCULAR HGB CONC 32.9 g/dL (32.0-36.0); MEAN CORPUSCULAR VOLUME 90 fl (80-97); PLATELET COUNT 168 10^3/uL (150-450); RED BLOOD COUNT 2.66 10^6/uL (3.72-5.28); RED CELL DISTRIBUTION WIDTH 13.2 % (11.5-14.0); WHITE BLOOD COUNT 13.9 10^3/uL (4.0-10.5)
[2017-12-24 07:52] LABS: HEMOGLOBIN 7.9 g/dL (12.0-15.5)
[2017-12-24] MEDS: DOCUSATE SODIUM 100 MG CAPSULE PO SCH ×2 (09:30→17:41)
[2017-12-24] MEDS: PRENATAL VITAMIN W DHA CAPSULE PO SCH (09:30)
[2017-12-24] MEDS: FERROUS SULFATE 325 MG TABLET PO SCH ×2 (09:31→17:40)
[2017-12-24] MEDS: SENNOSIDES/DOCUSATE 8.6-50 MG 1 EACH TABLET PO SCH (09:31)
--- NOTE | 2017-12-24 10:51 | PDOC PROGRESS REPORT ---
Subjective-OB Progress Note for:: 12/24/17 Subjective: s/p day #1 Pt doing well, states lochia is stable, pain well controlled, voiding without difficulty, bonding with baby. Physical Exam (OB) Vital Signs: Temp Pulse Resp BP Pulse Ox 97.6 F 66 15 124/78 100 12/24/17 08:59 12/24/17 08:59 12/24/17 08:59 12/24/17 08:59 12/24/17 08:59 Intake & Output 12/23/17 12/24/17 12/25/17 06:59 06:59 06:59 Intake Total 300 Balance 300 Weight 73.5 kg - Lochia Lochia Amount: Scant < 10 ml Lochia Color: Rubra/Red - Abdomen Description: Soft Hernia Present: No Fundal Description: Firm, Midline Fundal Height: u/u - u/2 Objective-Diagnostic Laboratory: 12/24/17 07:02 12/24/17 07:02 WBC 13.9 H RBC 2.66 L Hgb 7.9 L Hct 23.9 L MCV 90 MCH 29.5 MCHC 32.9 RDW 13.2 Plt Count 168 Assessment and Plan(PN) - Assessment and Plan (1) Vaginal delivery Is this a current diagnosis for this admission?: Yes Plan: routine pp care (2) Acute blood loss anemia Is this a current diagnosis for this admission?: Yes Plan: ferrous sulfate increase dietary iron - Time Spent with Patient Time with patient: Less than 15 minutes Critical Time spent with patient: Less than 15 minutes Medications reviewed and adjusted accordingly: Yes - Disposition Anticipated Discharge: Home Within: within 24 hours
[2017-12-25] MEDS: ACETAMINOPHEN WITH CODEINE #3 TABLET PO PRN ×2 (04:13→08:09)
[2017-12-25] MEDS: IBUPROFEN 800 MG TABLET PO SCH ×2 (06:17→13:32)
[2017-12-25 09:08] VITALS: BP 130/85
[2017-12-25] MEDS: DOCUSATE SODIUM 100 MG CAPSULE PO SCH (09:35)
[2017-12-25] MEDS: PRENATAL VITAMIN W DHA CAPSULE PO SCH (09:35)
[2017-12-25] MEDS: SENNOSIDES/DOCUSATE 8.6-50 MG 1 EACH TABLET PO SCH (09:35)
[2017-12-25] MEDS: FERROUS SULFATE 325 MG TABLET PO SCH (09:35)
--- NOTE | 2017-12-25 11:08 | PDOC PROGRESS REPORT ---
Subjective-OB Progress Note for:: 12/25/17 Subjective: Ready to go home. Physical Exam (OB) Vital Signs: Temp Pulse Resp BP Pulse Ox 98.1 F 72 15 130/85 H 98 12/25/17 09:07 12/25/17 09:07 12/25/17 09:07 12/25/17 09:07 12/25/17 09:07 Intake & Output 12/24/17 12/25/17 12/26/17 06:59 06:59 06:59 Intake Total 300 850 Balance 300 850 Weight 73.5 kg - Lochia Lochia Amount: Scant < 10 ml Lochia Color: Rubra/Red - Abdomen Description: Tender, Soft Hernia Present: No Bowel Sounds: Normoactive Flatus Presence: Present Stool: No Fundal Description: Firm, Midline Fundal Height: u/u - u/2 Objective-Diagnostic Laboratory: 12/24/17 07:02 Assessment and Plan(PN) - Time Spent with Patient Medications reviewed and adjusted accordingly: Yes - Disposition Anticipated Discharge: Home
--- NOTE | 2017-12-25 11:14 | PDOC DISCHARGE SUMMARY ---
Final Diagnosis Discharge Date: 12/25/17 - Final Diagnosis (1) Acute blood loss anemia Is this a current diagnosis for this admission?: Yes (2) History of depression Is this a current diagnosis for this admission?: Yes (3) Vaginal delivery Is this a current diagnosis for this admission?: Yes Discharge Data - Discharge Medication Home Medications: Pnv No.95/Ferrous Fum/Folic AC [ Multivitamin Tablet] 1 tab PO DAILY 09/24 Ferrous Sulfate [Feosol 325 mg Tablet] 325 mg PO BID tablet 12/25/17 Gestational Age: 38 wks Reason(s) for Admission: PROM Procedures: Ultrasound Intrapartum Procedure(s): Spontaneous Vaginal Delivery - [place] Data Baby 1 Male at 1 minute: 8 at 5 minutes: 9 Weight: 3.544 kg - Diagnosis Test Laboratory: Temp Pulse Resp BP Pulse Ox 98.1 F 72 15 130/85 H 98 12/25/17 09:07 12/25/17 09:07 12/25/17 09:07 12/25/17 09:07 12/25/17 09:07 12/23/17 12/23/17 12/24/17 05:43 06:22 07:02 RBC 3.16 L 2.66 L Hgb 9.4 L 7.9 L Hct 28.5 L 23.9 L Urine Opiates Screen NEGATIVE - Discharge information/Instructions Discharge Activity: Activity As Tolerated, Balance Activity w/Rest, Pelvic Rest , Slowly Increase Activity, No tub bath Discharge Diet: Regular Disposition: HOME, SELF-CARE Follow [facility]: [facility] in: 4, Weeks
== END 2017-12-25 13:35 | disposition home or self-care (01) | DRG 812 ==
LOC: LC 05:34 → LR 06:11 → 2S 12:38
PROVIDERS: ADMIT Obstetrics & Gynecology; ATTEND Obstetrics & Gynecology
PROC: 10E0XZZ Delivery of Products of Conception, External Approach (ICD-10-PCS; principal; 2017-12-23)
PROC: 4A1HXCZ Monitoring of Products of Conception, Cardiac Rate, External Approach (ICD-10-PCS; 2017-12-23)
DX: D62 Acute posthemorrhagic anemia (principal); O99.02 Anemia complicating childbirth; O99.334 Smoking (tobacco) complicating childbirth; F17.210 Nicotine dependence, cigarettes, uncomplicated; Z3A.38 38 weeks gestation of pregnancy; Z37.0 Single live birth
CPT/HCPCS: 36415; 80307; 81005; 85025; 85027; 86592; 86850; 86900; 86901; 88307; 90715; J2370; J2405; J2590; J3010; J3490